=== PATIENT | female | born 1955 | race Caucasian/White ===

== ENCOUNTER 2018-04-24 06:51 | Inpatient (IN) | payer OTHER ==
--- NOTE | 2018-04-14 21:41 | HP ---
HISTORY AND PHYSICAL: DATE OF ADMISSION/SURGERY: 04/24/18 DATE OF OFFICE VISIT: 04/11/18 SURGEON: Amy Tariq MD * (DICTATED BY RICO GE) PROCEDURE: Right total knee arthroplasty. CHIEF COMPLAINT: Right knee pain. HISTORY OF PRESENT ILLNESS: Ms. Tineo is a 62-year-old female with complaints of right knee pain. She has failed conservative treatment and elected to proceed with a right total knee arthroplasty, which is scheduled for 04/24/18. PAST MEDICAL HISTORY: Hypertension, high cholesterol, GERD, reactive airway disease, cutaneous T cell lymphoma, depression, sleep apnea, macular degeneration. PAST SURGICAL HISTORY: Hysterectomy and vertical banded gastroplasty. CURRENT MEDICATIONS: 1. Paroxetine 20 mg daily. 2. Atorvastatin. 3. Calcium 10 mg daily. 4. Ranitidine 300 mg daily. 5. Colace 100 mg as needed. 6. Multivitamin. 7. Tramadol. 8. Albuterol. 9. EpiPen. ALLERGIES: ASPIRIN. FAMILY HISTORY: Diabetes, cancer, coronary artery disease, DVT/PE. SOCIAL HISTORY: She is a 62-year-old female. She lives with her . She does not smoke, use drugs. Uses occasional alcohol. REVIEW OF SYSTEMS: A complete 14-point review of systems was reviewed with the patient. It was positive for GERD. She denies history of DVT, PE, hepatitis, HIV or anesthesia problems. PHYSICAL EXAMINATION GENERAL: She is well developed, well nourished, in no acute distress. VITAL SIGNS: She stands 6 feet 3 inches tall, weighs 215 pounds. Her blood pressure 142/90, her heart rate 68. HEENT: Normocephalic, atraumatic. NECK: Supple. No palpable lymph nodes. PULMONARY: Lungs are clear to auscultation bilaterally. CARDIO: Regular rate and rhythm. Strong S1, S2. ABDOMEN: Soft, nontender, nondistended. NEUROLOGICAL: She is alert and oriented x3. MUSCULOSKELETAL: Right lower extremity, the skin is intact. There are no open wounds or abrasions. She has a moderate joint effusion, some tenderness over the medial and lateral joint line. Range of motion is 5 to 120 degrees of flexion with severe patellofemoral crepitus. She has 2+ dorsalis pedis pulse. Intact sensation in her lower extremity. Muscular group strengths are intact at 5/5. ASSESSMENT AND PLAN: Ms. Tineo is a 62-year-old female with end-stage osteoarthritis of the right knee. She has failed conservative treatment and elected to proceed with a right total knee arthroplasty, which is scheduled for 04/24/[address] aTriq discussed the risks, the benefits of the surgery at today's visit and all of her questions were answered. She will follow with Dr. Tariq 2 weeks after the surgery. RICO GE [id number]/CPS #: [id number] JAN
[~2018-04-24 06:51] MED LIST: Buffered Lidocaine 0.9% SYRIN* 5 ML/SYR SYRINGE INTRADERM ONE; Dexamethasone IV* 4 MG/ML 1 ML (4 MG) IV SLOW PU ONE; Famotidine IV* 10 MG/ML 2 ML (20 mg) IV ONE; Gabapentin CAP(*) 300 MG PO ONE; Levalbuterol 0.63MG/3ML NEB* UNIT OF USE INH PRN; Tranexamic Acid 1,000 MG in NS 0.9% 50 ML* (outpatient use) IV SCH
--- OUTSIDE RECORDS SUMMARY | 2018-04-24 08:40 | XMS REPORT | Continuity of Care Document ---
:1955 External Reference #:[id number] Author Name Michele Thurman MD Address [address] [place] [address] Care Team Providers Name Role Phone Michele Thurman MD Care Team Information Facilities Custodian Unavailable Payers Type Date Identification Numbers Payment Provider Subscriber Effective: Policy Number: [id number] [facility] Lisset Tineo 2017 00 Group Number: [id number] [address] PayID: [id number] [place] [address] Advance Directives Description No Information Available Problems Description No Information Family History Date Family Member(s) Problem(s) Comments General Diabetes General Heart Disease General COPD General CHF General Cancer, Breast Social History Type Date Description Comments Sex Unknown Marital Status Lives With Male Partner Patelbradford Tineo Occupation Nurse Tobacco Use Start: Unknown Never Smoked Cigarettes ETOH Use Currently consumes alcohol 7-8 per week Allergies, Adverse Reactions, Alerts Date Description Reaction Status Severity Comments 08/16/2017 Bee Sting Active 08/16/2017 Aspirin Active Medications Medication Date Status Form Strength Qnty SIG Indications Ordering Provider Epipen 2-Poli Active Solution 0.3mg/0.3M 2units use as Michele 018 Auto-Injec L amanda Gutierrez as needed for severe allergic reaction and call 911 Paxil Active Tablets 20mg 90tabs 1 by mouth Michele 000 every day MD Olman Albuterol HFA Active 90mcg/Inh 2 puffs Unknown 000 every 4 hours as needed Zantac Active Tablets 300mg 60tabs 1 by mouth Michele 000 every day MD Olman Diclofenac Active Tablets DR 75mg 60tabs take 1 Michele Sodium 000 tablet by kelley Thurman MD twice a day Lipitor Active Tablets 10mg 15tabs Take 1/2 Michele 000 Tablet By Kelley Thurman AT MD Bedtime Immunizations CPT Code Status Date Vaccine Lot # [id number] Given 08/16/2017 Pneumovax 23 (PPSV23) 65+ years or high risk 2 to [id number] 65 year old 35470 Given 05/02/2016 Influenza Virus Vaccine, Quadrivalent, 3 Yr > Quad, Preserv Free 17453 Given 04/08/2014 Influenza Virus Vaccine, Quadrivalent, 3 Yr > Quad, Preserv Free 82173 Given 09/25/2012 Tdap (Adacel) 23418 Refused 08/16/2017 Influenza Virus Vaccine, Quadrivalent, 3 Yr > Quad , Preserv Free Vital Signs Date Vital Result Comment 04/10/2018 2:56pm Weight 216.00 lb Weight 97.978 kg BP Systolic 120 mmHg BP Diastolic 84 mmHg Heart Rate 64 /min Body Temperature 97.7 F Respiratory Rate 18 /min O2 % BldC Oximetry 98 % 08/16/2017 12:59pm Weight 207.00 lb Weight 93.895 kg BP Systolic 130 mmHg BP Diastolic 88 mmHg Heart Rate 68 /min Body Temperature 98.1 F Height 62 inches 5'2" BMI (Body Mass Index) 37.9 kg/m2 Results Test Date Facility Test Result H/L Range Note CBC Auto Diff 08/23/[address] [facility] White Blood 3.3 10^3/uL Low 3.5-10.8 [phone] Count Red Blood Count 4.51 10^6/uL 4.0-5.4 Hemoglobin 14.2 g/dL 12.0-16.0 Hematocrit 42 % 35-47 Mean Corpuscular Volume 93 fL 80-97 Mean Corpuscular Hemoglobin 32 pg High 27-31 Mean Corpuscular HGB Conc 34 g/dL 31-36 Red Cell Distribution Width 13 % 10.5-15 Platelet Count 129 10^3/uL Low 150-450 Mean Platelet Volume 11 um3 High 7.4-10.4 Abs Neutrophils 2.0 10^3/uL 1.5-7.7 Abs Lymphocytes 0.9 10^3/uL Low 1.0-4.8 Abs Monocytes 0.3 10^3/uL 0-0.8 Abs Eosinophils 0.1 10^3/uL 0-0.6 Abs Basophils 0 10^3/uL 0-0.2 Abs Nucleated RBC 0 10^3/uL Granulocyte % 60.4 % 38-83 Lymphocyte % 26.4 % 25-47 Monocyte % 8.8 % 1-9 Eosinophil % 3.3 % 0-6 Basophil % 1.1 % 0-2 Nucleated Red Blood Cells % 0.2 Comp Metabolic Panel 08/23/[address] [facility] Sodium 142 mmol/L 133-145 [phone] Potassium 4.0 mmol/L 3.5-5.0 Chloride 107 mmol/L 101-111 Co2 Carbon Dioxide 29 mmol/L 22-32 Anion Gap 6 mmol/L 2-11 Glucose 96 mg/dL 70-100 Blood Urea Nitrogen 10 mg/dL 6-24 Creatinine 0.68 mg/dL 0.51-0.95 BUN/Creatinine Ratio 14.7 8-20 Calcium 9.4 mg/dL 8.6-10.3 Total Protein 6.5 g/dL 6.4-8.9 Albumin 4.4 g/dL 3.2-5.2 Globulin 2.1 g/dL 2-4 Albumin/Globulin Ratio 2.1 1-3 Total Bilirubin 0.70 mg/dL 0.2-1.0 Alkaline Phosphatase 84 U/L 34-104 Alt 22 U/L 7-52 Ast 24 U/L 13-39 Egfr Non- 88.3 >60 Egfr 113.5 >60 1 Laboratory test 08/23/[address] [facility] Hemoglobin A1c 5.2 % 4.0-5.6 2 finding [phone] (Glyco HGB) TSH (Thyroid Stim Horm) 2.13 mcIU/mL 0.34-5.60 3 Lipid Profile 08/23/[address] [facility] Triglycerides 103 mg/dL 4 (Trig/Chol/HDL) [phone] Cholesterol 141 mg/dL 5 HDL Cholesterol 49.7 mg/dL 6 LDL Cholesterol 71 mg/dL 7 Laboratory 08/23/[address] [facility] Hepatitis C Nonreactive Nonreactive 8 test finding [phone] Antibody 1 Because ethnic data is not always readily available, this report includes an eGFR for both -Americans and non- Americans. The National Kidney Disease Education Program (NKDEP) does not endorse the use of the MDRD equation for patients that are not between the ages of 18 and 70, are , have extremes of body size, muscle mass, or nutritional status, or are non- or non-. According to the National Kidney Foundation, irrespective of diagnosis, the stage of the disease is based on the level of kidney function: Stage Description GFR(mL/min/1.73 m(2)) 1 Kidney damage with normal or decreased GFR 90 2 Kidney damage with mild decrease in GFR 60-89 3 Moderate decrease in GFR 30-59 4 Severe decrease in GFR 15-29 5 Kidney failure <15 (or dialysis) 2 Therapeutic target for the treatment of diabetes mellitus patients is <7% HBA1C, and in selective patients <6.0%. Please refer to [place] Diabetes Association diabetic care guidelines for further information. 3 [id number] 4 Desirable: <150 Borderline High: 150-199 High: 200-499 Very High: >500 5 Desirable: <200 Borderline High: 200-239 High: >239 6 Low: <40 Desirable: 40-60 High: >60 7 Desirable: <100 Near Optimal: 100-129 Borderline High: 130-159 High: 160-189 Very High: >189 8 [id number] Procedures Description No Information Available Encounters Type Date Location Provider Dx Diagnosis Office Visit 08/16/2017 Main Office Monae Ordonez00.8 Encounter for other 1:00p general examination Z23 Encounter for immunization Plan of Treatment 04/10/2018 - Michele Thurman MDZ01.818 Encounter for other preprocedural examinationComments:The patient is estimated to be LOW risk for an INTERMEDIATE risk surgery. There are no medications that need to be adjusted prior to surgery , except that she will stop diclofenac prior to surgery.No chronic medical issues need to be optimized prior to the operation. There were no factors identified todelay an elective procedure. We would recommend proceeding with the planned procedure with the usuallevel of care.Recommendations:Stop diclofenac a week before mbbgujjN54.11 Unilateral primary osteoarthritis, right knee
--- OUTSIDE RECORDS SUMMARY | 2018-04-24 08:40 | XMS REPORT ---
:1955 External Reference #:[id number] Author Organization [employer] Address [address] [place] [address] [place] [address] Phone [phone] Care Team Providers Name Role Phone Michele Thurman MD Primary Care Physician Unavailable Payers Type Date Identification Numbers Payment Provider Subscriber Commercial Effective: Policy Number: [facility] Lisset Tineo 2017 [id number] (Medicare) PayID: [id number] [place] [address] [address] [place] [address] [employer] [place] Part B Effective: Policy Number: Rosibel RUBY Tineo 2010 [id number] Expires: 2017 PayID: [id number] [address] [address] [place] [address] [employer] Part B Expires: 2017 Policy Number: [facility] Health Plan Lisset Tineo [id number] o PayID: [id number] Attn o Claims Dept [address] [place] [address] Problems Date Description Provider Status Onset: 12/30/2017 Trochanteric bursitis Amy Tariq M.D. Active Onset: 12/30/2017 Localized, primary osteoarthritis of the Amy Tariq M.D. Active pelvic region and thigh Onset: 12/30/2017 Localized, primary osteoarthritis Amy Tariq M.D. Active Family History Date Family Member(s) Problem(s) Comments General Cancer MGM Father Diabetes Father Heart Disease Mother Diabetes Mother Hypertension First Brother Diabetes First Brother Heart Disease Social History Type Date Description Comments Lives With Spouse Occupation Retired ETOH Use Drinks 6 Alcoholic Beverages Per Week Smoking Patient has never smoked Exercise Type/Frequency Walks sporadically Allergies, Adverse Reactions, Alerts Date Description Reaction Status Severity Comments 12/30/2017 Aspirin swelling active Medications Medication Date Status Form Strength Qnty SIG Indications Ordering Provider Voltaren 03/10/ Active Gel 1% 100gm apply 2 Amy 2017 grams to Marciano, affected M.D. area 2-3 times daily for pain Tramadol HCL 02/05/ Active Tablets 50mg 45tabs 1 tab Amy 2017 twice a Marciano, day as M.D. needed for pain Paroxetine HCL / Active Tablets 20mg Heetderks, 0000 Michele Machado MD Atorvastatin / Active Tablets 10mg Elijahetderks, Calcium 0000 Michele Machado MD Diclofenac / Active Tablets DR 75mg 60tabs one tab Amy Sodium 0000 twice a Marciano, day with M.D. food as needed Ranitidine HCL / Active Tablets 300mg Take 1 Unknown 0000 Tablet By Mouth Once Daily AT Bedtime Colace / Active Capsules 100mg 1 tab by Unknown 0000 mouth 2-3 times a day as needed Multi For Her / Active Capsules once a day Unknown 0000 otc Medications Administered in Office Medication Date Status Form Strength Qnty SIG Indications Ordering Provider Depomedrol Administered Injection Amy 40MG 018 Kaitlin Tariq Vital Signs Date Vital Result Comment 04/11/2018 Height 63 inches 5'3" Weight 216.25 lb Heart Rate 68 /min BP Systolic 142 mmHg BP Diastolic 90 mmHg Respiratory Rate 16 /min Body Temperature 98.3 F Pain Level 3 BMI (Body Mass Index) 38.3 kg/m2 12/30/2017 Height 62.5 inches 5'2.50" Weight 197.00 lb BP Systolic Sitting 132 mmHg BP Diastolic Sitting 92 mmHg Respiratory Rate 16 /min Body Temperature 98.0 F Pain Level 4 BMI (Body Mass Index) 35.5 kg/m2 04/20/2011 Height 63 inches 5'3" Weight 190.00 lb Heart Rate 63 /min BP Systolic 132 mmHg BP Diastolic 97 mmHg BMI (Body Mass Index) 33.7 kg/m2 Results Description No Information Procedures Date CPT Code Description Status 12/30/2017 03114 Injection Single Tendon Origin/Insertion Completed Encounters Type Date Location Provider CPT E/M Dx Office Visit 12/30/2017 [facility] Amy Tariq M.D. 56476 M25.561 1:30p [facility] M25.461 M17.11 M25.551 M16.11 M70.61 Office Visit 04/30/2011 4:00p [facility] M.D. 93334 726.64 [facility] Office Visit 04/20/2011 11:00a [facility] M.D. 37469 836.1 [facility] Plan of Care Future Appointment(s):05/07/2018 11:15 am - Amy Tariq M.D. at [facility]04/24/2018 11:30 am - Jules Bryan PA-C at [facility]04/24/2018 11:30 am - RICO Skaggs at [facility]04/24/2018 11:30 am - Amy Tariq M.D. at [facility]04/11/2018 - Amy Tariq M.D.M25.561 Pain in right kneeFollow up:Follow up: 2 weeks after gaxfuxwK59.461 Effusion, right kneeM17.11 Unilateral primary osteoarthritis, right knee
--- OUTSIDE RECORDS SUMMARY | 2018-04-24 08:40 | XMS REPORT | Continuity of Care Document ---
:1955 External Reference #:[id number] Author Name Krishna Mays M.D. Address [address] [place] [address] Care Team Providers Name Role Phone Michele Thurman M.D. Primary Care Physician Unavailable Payers Type Date Identification Numbers Payment Provider Subscriber Policy Number: [id number] [facility] Lisset Tineo PayID: [id number] [address] [place] [address] Advance Directives Description No Information Available Problems Date Description Provider Status Onset: Reactive airway disease Active Onset: Gastroesophageal reflux disease Active Onset: Arthritis Active Onset: Essential hypertension Active Onset: Hypercholesterolemia Active Onset: Depressive disorder Active Onset: 12/30/2014 Nuclear senile cataract Chloe Fowler O.D. Active Onset: 04/10/2018 Bilateral age-related nonexudative Krishna Mays M.D. Active macular degeneration Onset: 04/10/2018 Epiretinal membrane Krishna Mays M.D. Active Family History Date Family Member(s) Problem(s) Comments Father No Current Problems Mother Cataract Social History Type Date Description Comments Sex Unknown Marital Status Legal Status: Occupation Nurse Retired and Spr[employer] Work Status Retired ETOH Use Consumes 1 glass of wine per day Tobacco Use Start: Unknown Patient has never smoked Recreational Drug Use Denies Drug Use Smoking Status Reviewed: 04/10/18 Patient has never smoked Allergies, Adverse Reactions, Alerts Date Description Reaction Status Severity Comments 12/30/2014 Aspirin bleed Active 12/30/2014 Ecotrin Allergic asthma, Urticaria Active 12/30/2014 Bee Stings Active Medications Medication Date Status Form Strength Qnty SIG Indications Ordering Provider Diclofenac 04/09/ Active Tablets DR 75mg as Unknown Sodium 2017 needed Atorvastatin / Active Tablets 10mg Unknown Calcium 0000 Paroxetine HCL / Active Tablets 20mg Unknown 0000 Multivitamins / Active Capsules Unknown 0000 Epipen 2-Poli / Active Solution 0.3mg/0.3M Unknown 0000 Auto-Inject L Albuterol / Active Nebulizer (2.5mg/3ML Unknown Sulfate 0000 ) 0.083% Ranitidine HCL / Active Tablets 300mg Unknown 0000 Immunizations Description No Information Available Vital Signs Description No Information Available Results Description No Information Available Procedures Date Code Description Status 12/30/2014 86001 Determination Of Refractive State Completed 12/30/2014 27427 New Patient Comprehensive Exam Completed Encounters Description No Information Available Plan of Treatment 04/10/2018 - Krishna Mays M.D.H35.373 Puckering of macula, bilateralComments:Smoking can increase the risk of developing or worsening any eye related disease, as well as affect your overall health. If you are a smoker , we strongly recommend that you quit.If you are not a smoker, we strongly recommend that you do not start. A Macular Pucker is a wrinkling of the retina tissue. It can cause distortion in your vision. Please call the office if you notice a decrease or new distortion in your vision before then. I WILL REFER YOU TO A RETINA SPECIALIST TO EVALUATE THIS RETINALMEMBRANE FOR IF A SURGERY IS HOBJFYHLYD30.13 Age-related nuclear cataract, bilateralComments:You have been diagnosed with cataracts. If you are happy with your vision as it is now, then we willsee you at your next scheduled appointment. If you feel like your vision is getting worse before your scheduled appointment, please call Lashawn Cuevas at [phone].H35.1031 Nonexudative age-related macular degeneration, bilateral, early dry stageComments:You have Macular Degeneration. Check your Amsler Grid, with each eye separately, and take the AREDS II formula vitamins. If you notice any changes in your vision, please call the office and schedule anappointment to see any of the doctors here.
[2018-04-24] MEDS ORDERED: Famotidine IV* 10 MG/ML 2 ML (20 mg) ONE (08:46)
[2018-04-24] MEDS ORDERED: Buffered Lidocaine 0.9% SYRIN* 5 ML/SYR SYRINGE ONE (08:46)
[2018-04-24] MEDS ORDERED: Dexamethasone IV* 4 MG/ML 1 ML (4 MG) ONE (08:46)
[2018-04-24] MEDS ORDERED: ceFAZolin 2 GM PREMIX in ORs 2 GM/50 ML BAG IVPB ONE (09:41)
[2018-04-24] MEDS ORDERED: Levalbuterol 0.63MG/3ML NEB* UNIT OF USE INH PRN (09:51)
[2018-04-24] MEDS ORDERED: DiMENhydriNATE IV* 50 MG/ML VIAL IV PUSH PRN (09:51)
[2018-04-24] MEDS ORDERED: HYDROcodone/ACETAMIN 5-325 MG* 1 TAB PO PRN (09:51)
[2018-04-24] MEDS ORDERED: oxyCODONE/Acetamin 5/325 MG* TAB PO PRN (09:51)
[2018-04-24] MEDS ORDERED: Naloxone* 0.4 MG/ML 1 ML VIAL IV PRN (09:51)
[2018-04-24] MEDS ORDERED: Midazolam* 1 MG/ML 5 ML VIAL (5 MG) ONE (09:56)
[2018-04-24] MEDS ORDERED: fentaNYL* 50 MCG/ML 2 ML VIAL (100 MCG VIAL) ONE ×6 (09:56→14:59)
[2018-04-24] MEDS ORDERED: Gabapentin CAP(*) 300 MG ONE (09:57)
[2018-04-24] MEDS ORDERED: Levalbuterol 0.63MG/3ML NEB* UNIT OF USE INH ONE (09:57)
[2018-04-24] MEDS ORDERED: celeCOXIB CAP* 100 MG ONE (10:19)
[2018-04-24] MEDS ORDERED: ROPIVACAINE 5 MG/ML 30 ML BTL (0.5%) ONE (10:21)
[2018-04-24] MEDS: celeCOXIB CAP* 200 MG PO SCH ×2 (10:22→20:09)
[2018-04-24] MEDS ORDERED: Bupivacaine 0.5% SDV PF* 30ML VIAL ONE (11:03)
[2018-04-24] MEDS ORDERED: Propofol* 10 MG/ML 20 ML BTL IV PUSH ONE (11:09)
[2018-04-24] MEDS ORDERED: Lidocaine 2% PF * 5 ML VIAL ONE (11:09)
[2018-04-24] MEDS ORDERED: EPHEDrine (Pressors)* 50 MG/ML VIAL ONE (11:31)
[2018-04-24] MEDS ORDERED: KETAMINE HCL* 50 MG/ML 10 ML VIAL ONE (11:53)
[2018-04-24] MEDS ORDERED: hydrALAZINE IV* 20 MG/ML VIAL ONE (12:06)
[2018-04-24] MEDS ORDERED: Ondansetron INJ* 2 MG/ML VIAL ONE (12:56)
[2018-04-24] MEDS ORDERED: Phenylephrine INJ* 10 MG/ML 1 ML VIAL (10 MG) ONE (12:56)
[2018-04-24] MEDS ORDERED: Bisacodyl SUPP* 10 MG SUPP PR PRN (13:48)
[2018-04-24] MEDS ORDERED: Ondansetron INJ* 2 MG/ML VIAL IV PRN (13:48)
[2018-04-24] MEDS ORDERED: Morphine VIAL* 4 MG/ML VIAL (1 ml vial) IV PRN (13:48)
[2018-04-24] MEDS ORDERED: Acetaminophen TAB* 325 MG PO PRN (13:48)
[2018-04-24] MEDS ORDERED: diPHENhydraMINE IV* 50 MG/ML 1 ml VIAL (BENADRYL) IV PRN (13:48)
[2018-04-24] MEDS ORDERED: Magnesium Hydroxide LIQ* 30 ML UDC PO PRN (13:48)
[2018-04-24] MEDS: fentaNYL* 50 MCG/ML 2 ML VIAL (100 MCG VIAL) IV PRN ×5 (13:55→15:17)
--- NOTE | 2018-04-24 14:56 | RAD ---
HISTORY: S/P RTKA COMPARISONS: December 30, 2017 VIEWS: 2 , Frontal and lateral views of the right knee FINDINGS: BONE DENSITY: Normal. BONES: The patient is status post right knee arthroplasty. There is no hardware failure or osteolysis. JOINTS: The patient is status post right knee arthroplasty. ALIGNMENT: There is no dislocation. SOFT TISSUES: Unremarkable. OTHER FINDINGS: None. IMPRESSION: STATUS POST RIGHT KNEE ARTHROPLASTY
[2018-04-24] MEDS ORDERED: oxyCODONE/Acetamin 5/325 MG* TAB ONE (15:15)
--- NOTE | 2018-04-24 15:33 | PN ---
Progress Note - Progress Note Date of Service: 04/24/18 Note: patient resting in recovery room. Pain controlled well with medications. Denies SOB/calf pain. incision c/d; able to dorsi flex/plantar flex, 2+ DP pulse and intact sensation
[2018-04-24] MEDS ORDERED: HYDROcodone/ACETAMIN 5-325 MG* 1 TAB ONE (15:41)
[2018-04-24] MEDS ORDERED: Warfarin TAB(*) 6 MG PO ONE (17:00)
[2018-04-24] MEDS: oxyCODONE TAB* 5 MG TAB PO PRN (17:23)
[2018-04-24] MEDS ORDERED: Albuterol 2.5 MG/3 ML NEB.SOL* (0.083%) INH PRN (18:29)
[2018-04-24] MEDS: Docusate CAP* 100 MG PO SCH (20:08)
[2018-04-24] MEDS: Magnesium Hydroxide LIQ* 30 ML UDC PO SCH (20:09)
[2018-04-24] MEDS: oxyCODONE/Acetamin 5/325 MG* TAB PO PRN (20:09)
[2018-04-24] MEDS: ceFAZolin 1 GM in Dextrose (*) 1 GM/50 ML BAG IVPB SCH (20:09)
[2018-04-24] MEDS: Cyclobenzaprine TAB* 10 MG PO PRN (21:22)
--- NOTE | 2018-04-24 22:19 | CONS ---
CC: Dr. Racheal Parra; Dr. Amy Tariq* CONSULTATION REPORT: DATE OF CONSULT: 04/24/18. MY ATTENDING WHILE IN THE HOSPITAL: Dr. Racheal Parra. CONSULTING PROVIDER: Dr. Amy Tariq. REASON FOR CONSULTATION: Comanagement of comorbid medical conditions. HISTORY OF PRESENT ILLNESS: Mrs. Tineo is a 62-year-old female with a past medical history significant for reactive airway disease, cutaneous T-cell lymphoma, sleep apnea, and borderline hypertension, who failed outpatient treatment for right knee pain and is status post right total knee arthroplasty. The patient is doing well after the surgery. The patient rates her pain as a 5/10, which is improved with medication and not unbearable. The patient denies chest pain, shortness of breath, dizziness, palpitations or abdominal pain. The patient had no recent illnesses. No sick contacts. No abdominal pain, diarrhea or dysuria, passing out, PND, decrease in exercise tolerance or dyspnea on exertion. The patient uses her inhaler approximately about once a day. She stopped her Voltaren 1 week ago as prescribed. The patient uses her tramadol twice a day, but stopped last night. The patient is taking all of her other medications as prescribed. PAST MEDICAL HISTORY: Borderline hypertension, not on medication. High cholesterol, GERD, reactive airway disease, cutaneous T-cell lymphoma, currently in remission. Depression, sleep apnea, macular degeneration. PAST SURGICAL HISTORY: Hysterectomy and vertical-banded gastroplasty. MEDICATIONS: 1. Paroxetine 20 mg p.o. daily. 2. Atorvastatin 5 mg p.o. daily. 3. Calcium 10 mg p.o. daily. 4. Ranitidine 300 mg p.o. daily. 5. Colace 100 mg p.o. daily. 6. Multivitamin. 7. Tramadol b.i.d. as needed. 8. Albuterol q.4 hours nebulizer as needed. 9. EpiPen 3 mcg as needed. 10. Voltaren 75 mg b.i.d. as needed. ALLERGIES: ASPIRIN. FAMILY HISTORY: The patient's father of CHF, complicating AR. The patient 's mother of Alzheimer's disease and had a history of a blood clot. The patient's maternal grandfather had lymphoma. The patient's brother recently with the complications of CHF. SOCIAL HISTORY: The patient does not smoke or use drugs. The patient drinks 1 beer approximately 3 to 5 times a week. The patient is an RN at [employer]. The patient's surrogate decision maker will be her , Patel Tineo. REVIEW OF SYSTEMS: A 14-point review of systems was reviewed and is negative as above in the HPI. PHYSICAL EXAM: General: The patient is a 62-year-old female, who appears her stated age and sitting comfortably in bed, in no acute distress. HEENT: Normocephalic, atraumatic, sclerae anicteric. No conjunctival injection. Nasal mucosa moist. Oral mucosa moist. No pharyngeal erythema, discharge or exudate. Vital Signs: Temperature 98.5, pulse rate 91, respiratory rate 16, oxygen saturation is 97% on room air, blood pressure 128/74. Neck: Supple. Nontender. No lymphadenopathy. No carotid bruit auscultated. No JVD. Cardiac : Regular rate and rhythm. No clicks, murmurs, gallops or rubs. Pulses 2+ in bilateral dorsalis pedis, posterior tibialis, and radial areas. No bilateral lower extremity edema noted. Respiratory: Clear to auscultation bilaterally. No wheezes, rales or rhonchi. Good air exchange bilaterally. Abdomen: Bowel sounds present. Hypoactive in all 4 quadrants. No hepatosplenomegaly. No abdominal bruits auscultated. No hepatojugular reflux. Skin: Clean, dry, and intact except for right knee incision covered in bulky dressing. Neuro: Cranial nerves II through XII intact. No focal deficits. Alert and oriented x3. No numbness or tingling in the bilateral lower extremity. Psychiatric: Pleasant and cooperative. DIAGNOSTIC STUDIES/LAB DATA: Preoperatively, white blood cell count 4.9, hemoglobin 13.7, platelet count 146, INR 0.9, aPTT 35.2. Sodium 144, potassium 4.2, chloride 107, carbon dioxide 30, anion gap 7, BUN 16, glucose 76, calcium 9.1, bilirubin 0.5, AST 20, ALT 16, alkaline phosphatase 96, albumin 4.4, globulin 2.3, lipase 24. ASSESSMENT, PLAN, AND IMPRESSION: Mrs. Tineo is a 62-year-old female with a past medical history significant for hypertension, high cholesterol, reactive airway disease, and cutaneous T-cell lymphoma as well as sleep apnea, who is status post right total knee arthroplasty and is doing well without complications. 1. Postoperative state, management per primary team. The patient's pain is moderately well controlled. The patient should have her Lazar catheter removed per protocol. Will be continued on bowel regimen, to have physical therapy and occupational therapy, to have her H and H trended. 2. Hypertension. The patient's hypertension is borderline and is not an issue for her, she is currently normotensive. The patient will have fluids for blood pressure support in the postoperative period, which we can discontinue per protocol when she is drinking fluids. The patient will have blood pressure treated as needed while in the hospital. 3. High cholesterol. Continue atorvastatin. 4. Reactive airway disease. Continue albuterol as needed. 5. Depression. Continue paroxetine. 6. Sleep apnea. The patient brought in her home CPAP, which she should use while in the hospital. 7. DVT prophylaxis: Lovenox to warfarin as per primary team. 8. Fluids, electrolytes, and nutrition: The patient will have a regular unrestricted diet and fluids as per primary team. 9. Code status: The patient will be a full code. The patient's surrogate decision maker will be her , Patel Tineo as above. 10. Disposition: The patient will be admitted as an inpatient. TIME SPENT: Approximately, 60 minutes was spent on this consultation, 30 of which was spent [id number] with the patient obtaining history and physical and discussing treatment plan. Plan was discussed with my attending, Dr. Racheal Parra, and she is in agreement. RICO RAMSEY [id number]/[facility] #: [id number] [email or web address]
[2018-04-25] MEDS: oxyCODONE/Acetamin 5/325 MG* TAB PO PRN ×2 (03:36→11:20)
[2018-04-25] MEDS: ceFAZolin 1 GM in Dextrose (*) 1 GM/50 ML BAG IVPB SCH ×2 (03:38→12:33)
[2018-04-25] MEDS: oxyCODONE TAB* 5 MG TAB PO PRN (06:34)
[2018-04-25 07:19] LABS: Hematocrit 33 % (35-47); Hemoglobin 11.2 g/dl (12.0-16.0); Mean Platelet Volume 9.3 um3 (7.4-10.4); Platelet Count 145 10^3/ul (150-450)
[2018-04-25 07:38] LABS: INR 1.1 (0.77-1.02)
[2018-04-25] MEDS: Cyclobenzaprine TAB* 10 MG PO PRN (07:51)
[2018-04-25] MEDS ORDERED: Vitamin THERAPEUTIC TAB PO SCH (09:00)
[2018-04-25] MEDS ORDERED: PARoxetine HCL TAB* 20 MG PO SCH (09:00)
[2018-04-25] MEDS ORDERED: Famotidine TAB* 20 MG PO SCH (09:00)
--- NOTE | 2018-04-25 09:13 | PN ---
Progress Note - Progress Note Date of Service: 04/25/18 SOAP: Subjective: 62 y/o R TKA by Dr. Tariq 04/24/2018. Patient reports doing well, eager for D/ C home today. Pain moderately controlled with PO pain medication. Denies SOb chest pain. VSS, afebrile overnight. Objective: General- Well appearing, NAD, AO resting in chair comfortably. MSK- RLE- DF/PF = b/l, PT 2+, negative homans sign, surgical dressing intact, no drainage noted, thigh non-tender, no induration. SITLT. Vital Signs Temp 98.0 F 04/25/18 03:21 Pulse 73 04/25/18 03:21 Resp 18 04/25/18 07:51 BP 100/47 04/25/18 03:21 Pulse Ox 97 04/25/18 03:21 Intake & Output 04/24/18 04/25/18 04/25/18 18:59 06:59 18:59 Intake Total 2120 2558 310 Output Total 1625 300 Balance 2120 933 10 Weight 96.615 kg Intake: IV Fluids 1700 1098 ABX - CEFAZOLIN 108 LR 1700 990 Oral 420 1460 310 Output: Urine 300 Lazar 1625 Other: # Bowel Movements 0 Assessment: Stable 62 y/o R TKA by Dr. Tariq 04/24/2018. Plan: - DVT prophylaxis- lovenox, coumadin - Continue PT/ OT - Follow up with Dr. Tariq within 10-14 days - H&H - stable - post-op IV ABX - running - D/C to home today if completes and cleared by PT - Continue current pain regimen Acetaminophen (Tylenol Tab*) 650 mg PO Q8H PRN PRN Reason: PAIN OR TEMPERATURE Albuterol (Ventolin 2.5 Mg/3 Ml Neb.Jeanne*) 2.5 mg INH Q4H PRN PRN Reason: SOB/WHEEZING Atorvastatin Calcium (Lipitor*) 10 mg PO EVERY OTHER DAY PITA Bisacodyl (Dulcolax Supp*) 10 mg OH DAILY PRN PRN Reason: constipation Celecoxib (Celebrex Cap*) 200 mg PO BID PITA Stop: 04/25/18 10:59 Last Admin: 04/24/18 20:09 Dose: 200 mg Cyclobenzaprine HCl (Flexeril Tab*) 5 mg PO TID PRN PRN Reason: SPASMS Last Admin: 04/25/18 07:51 Dose: 5 mg Diphenhydramine HCl (Benadryl Iv*) 25 mg IV Q6H PRN PRN Reason: itching Docusate Sodium (Colace Cap*) 100 mg PO BID [facility] Last Admin: 04/24/18 20:08 Dose: 100 mg Enoxaparin Sodium (Lovenox(*)) 40 mg SUBCUT Q24H [facility] Famotidine (Pepcid Tab*) 40 mg PO QAM [facility] Cefazolin Sodium/Dextrose (Kefzol 1 Gm In Dextrose Duplex (*)) 1 gm in 50 mls @ 200 mls/hr IVPB Q8H [facility] Stop: 04/25/18 12:14 Last Admin: 04/25/18 03:38 Dose: 200 mls/hr Lactated Ringer's (Lactated Ringers 1000 Ml Bag*) 1,000 mls @ 75 mls/hr IV PER RATE [facility] Last Admin: 04/24/18 15:56 Dose: 75 mls/hr Lactulose (Lactulose*) 30 ml PO Q6H PRN PRN Reason: constipation Magnesium Hydroxide (Milk Of Magnesia Liq*) 30 ml PO BID [facility] Last Admin: 04/24/18 20:09 Dose: 30 ml Magnesium Hydroxide (Milk Of Magnesia Liq*) 30 ml PO Q6H PRN PRN Reason: constipation Morphine Sulfate (Morphine Vial*) 2 mg IV Q2H PRN PRN Reason: PAIN - SEVERE Multivitamins (Theragran Tab*) 1 tab PO DAILY [facility] Ondansetron HCl (Zofran Inj*) 4 mg IV Q6H PRN PRN Reason: nausea Oxycodone HCl (Roxycodone Tab*) 10 mg PO Q4H PRN PRN Reason: PAIN - SEVERE Last Admin: 04/25/18 06:34 Dose: 10 mg Oxycodone/Acetaminophen (Percocet 5/325 Tab*) 2 tab PO Q4H PRN PRN Reason: PAIN Last Admin: 04/25/18 03:36 Dose: 2 tab Paroxetine HCl (Paxil Tab*) 20 mg PO QAM [facility]
[2018-04-25] MEDS: Docusate CAP* 100 MG PO SCH (09:49)
[2018-04-25] MEDS: celeCOXIB CAP* 200 MG PO SCH (09:51)
[2018-04-25] MEDS: Magnesium Hydroxide LIQ* 30 ML UDC PO SCH (09:51)
--- NOTE | 2018-04-25 10:47 | PN ---
Subjective Date of Service: 04/25/18 Interval History: Patient is resting comfortably in chair, POD 1. Reports knee pain at 2/10 with medication. Denies any other pain including chest pain, shortness of breath, abdominal pain, N/V, dizziness, numbness or tingling. Objective Active Medications: Acetaminophen (Tylenol Tab*) 650 mg PO Q8H PRN PRN Reason: PAIN OR TEMPERATURE Albuterol (Ventolin 2.5 Mg/3 Ml Neb.Jeanne*) 2.5 mg INH Q4H PRN PRN Reason: SOB/WHEEZING Atorvastatin Calcium (Lipitor*) 10 mg PO EVERY OTHER DAY PITA Bisacodyl (Dulcolax Supp*) 10 mg VT DAILY PRN PRN Reason: constipation Celecoxib (Celebrex Cap*) 200 mg PO BID [facility] Stop: 04/25/18 10:59 Last Admin: 04/25/18 09:51 Dose: 200 mg Cyclobenzaprine HCl (Flexeril Tab*) 5 mg PO TID PRN PRN Reason: SPASMS Last Admin: 04/25/18 07:51 Dose: 5 mg Diphenhydramine HCl (Benadryl Iv*) 25 mg IV Q6H PRN PRN Reason: itching Docusate Sodium (Colace Cap*) 100 mg PO BID [facility] Last Admin: 04/25/18 09:49 Dose: 100 mg Enoxaparin Sodium (Lovenox(*)) 40 mg SUBCUT Q24H [facility] Famotidine (Pepcid Tab*) 40 mg PO QAM [facility] Last Admin: 04/25/18 09:48 Dose: 40 mg Cefazolin Sodium/Dextrose (Kefzol 1 Gm In Dextrose Duplex (*)) 1 gm in 50 mls @ 200 mls/hr IVPB Q8H [facility] Stop: 04/25/18 12:14 Last Admin: 04/25/18 03:38 Dose: 200 mls/hr Lactated Ringer's (Lactated Ringers 1000 Ml Bag*) 1,000 mls @ 75 mls/hr IV PER RATE [facility] Last Admin: 04/24/18 15:56 Dose: 75 mls/hr Lactulose (Lactulose*) 30 ml PO Q6H PRN PRN Reason: constipation Magnesium Hydroxide (Milk Of Magnesia Liq*) 30 ml PO BID [facility] Last Admin: 04/25/18 09:51 Dose: 30 ml Magnesium Hydroxide (Milk Of Magnesia Liq*) 30 ml PO Q6H PRN PRN Reason: constipation Morphine Sulfate (Morphine Vial*) 2 mg IV Q2H PRN PRN Reason: PAIN - SEVERE Last Admin: 04/25/18 09:58 Dose: 2 mg Multivitamins (Theragran Tab*) 1 tab PO DAILY [facility] Last Admin: 04/25/18 09:51 Dose: 1 tab Ondansetron HCl (Zofran Inj*) 4 mg IV Q6H PRN PRN Reason: nausea Oxycodone HCl (Roxycodone Tab*) 10 mg PO Q4H PRN PRN Reason: PAIN - SEVERE Last Admin: 04/25/18 06:34 Dose: 10 mg Oxycodone/Acetaminophen (Percocet 5/325 Tab*) 2 tab PO Q4H PRN PRN Reason: PAIN Last Admin: 04/25/18 03:36 Dose: 2 tab Paroxetine HCl (Paxil Tab*) 20 mg PO QAM [facility] Last Admin: 04/25/18 09:52 Dose: 20 mg Vital Signs - 8 hr 04/25/18 04/25/18 04/25/18 03:21 03:35 03:36 Temperature 98.0 F Pulse Rate 73 Respiratory 16 18 18 Rate Blood Pressure 100/47 (mmHg) O2 Sat by Pulse 97 Oximetry 04/25/18 04/25/18 04/25/18 05:56 06:34 07:51 Temperature Pulse Rate Respiratory 16 16 18 Rate Blood Pressure (mmHg) O2 Sat by Pulse Oximetry 04/25/18 09:58 Temperature Pulse Rate Respiratory 18 Rate Blood Pressure (mmHg) O2 Sat by Pulse Oximetry Oxygen Devices in Use Now: None, CPAP Eyes: No Scleral Icterus, PERRLA Ears/Nose/Mouth/Throat: NL Teeth, Lips, Gums, Mucous Membranes Moist Neck: NL Appearance and Movements; NL JVP, Trachea Midline Respiratory: Symmetrical Chest Expansion and Respiratory Effort, Clear to Auscultation Cardiovascular: NL Sounds; No Murmurs; No JVD, RRR, No Edema Abdominal: NL Sounds; No Tenderness; No Distention Extremities: No Edema, No Clubbing, Cyanosis, - - 2+ DP and PT pulses bilaterally. Flexion/dorsiflexion intact Skin: - - Dressing on R knee CDI Neurological: Alert and Oriented x 3, NL Muscle Strength and Tone Lines/Tubes/Other Access: Clean, Dry and Intact Peripheral IV Result Diagrams: 04/25/18 07:05 04/25/18 07:05 Assess/Plan/Problems-Billing Assessment: Pt is a pleasant 62 year old female with a PMH significant for restrictive airway disease admitted for right knee total knee arthroplasty with Dr Tariq. POD 1 and resting comfortably. - Patient Problems (1) Status post total right knee replacement Current Visit: Yes Status: Acute Code(s): Z96.651 - PRESENCE OF RIGHT ARTIFICIAL KNEE JOINT SNOMED Code(s): 9555906512728 Comment: - Plan per primary team - Pain well controlled on current pain regimen - Continue bowel regimen - PT/OT following - H/H stable (2) Restrictive airway disease Current Visit: Yes Status: Acute Code(s): J98.4 - OTHER DISORDERS OF LUNG SNOMED Code(s): 89276310 Comment: - Lungs clear to ausculation with normal WOB - Continue albuterol PRN - Pt has been using incentive spirometry (3) Sleep apnea Current Visit: Yes Status: Acute Code(s): G47.30 - SLEEP APNEA, UNSPECIFIED SNOMED Code(s): 63479829 Comment: - Pt uses CPAP at home and has brought with her to use in hospital (4) Obesity (BMI 30-39.9) Current Visit: Yes Status: Acute Code(s): E66.9 - OBESITY, UNSPECIFIED SNOMED Code(s): 949043087 Comment: - BMI 37.7 (5) DVT prophylaxis Current Visit: Yes Status: Acute Code(s): SDY6605 - SNOMED Code(s): 686127299 Comment: - Coumadin with lovenox bridge (6) Full code status Current Visit: Yes Status: Acute Code(s): Z78.9 - OTHER SPECIFIED HEALTH STATUS SNOMED Code(s): 673751493 Status and Disposition: Plan per primary team Attending: Neftaly Arceo
--- NOTE | 2018-04-25 11:51 | OP ---
OPERATIVE NOTE: DATE OF OPERATION: 04/24/18 - Inpatient, room [facility]- DATE OF : 57 SURGEON: Amy Tariq MD. CAT TENDER: RICO Quiroz Mr. Bryan did help throughout the procedure with preparation of the leg, wound retraction, manipulation of the knee, and wound closure. ANESTHESIOLOGIST: Dr. Nair. ANESTHESIA: Spinal. PRE-OP DIAGNOSIS: Severe end-stage degenerative osteoarthritis of the right knee joint. POST-OP DIAGNOSIS: Severe end-stage degenerative osteoarthritis of the right knee joint. OPERATIVE PROCEDURE: Right total knee arthroplasty. TOURNIQUET TIME: 41 minutes. COMPLICATIONS: None. ESTIMATED BLOOD LOSS: 250 cc. HARDWARE USED: This is cemented Oter[employer] Nephew total knee arthroplasty hardware. Two packages of Simplex bone cement. For the femur, a size 5 narrow right Oxinium posterior stabilized Legion femoral component. For the tibia, size 3, Vandana II tibial blase plate. For the insert, an 11-mm posterior stabilized articular insert, size 3-4 and for the patella, a 29-mm 3 peg all poly patella. BRIEF HISTORY/INDICATIONS: Ms. Tineo is a 62-year-old female with years of increasingly severe right knee pain. She failed conservative treatment with anti- inflammatories, pain medication, intra-articular injections, and physical therapy. Due to continued pain and decreased quality of life, she elected to undergo right total knee arthroplasty. Radiographs confirmed [id number] arthritis. Informed consent was obtained from the patient. She understood the risks of surgery included, but were not limited to, bleeding, infection, damage to nearby structures, continued pain, need for further surgery, intraoperative fracture, nerve palsy, hardware failure or loosening, knee stiffness, loss of motion, stroke, heart attack, blood clot, and . She wished to proceed. INTRAOPERATIVE FINDINGS: Intraoperatively, the patient was noted to have severe end-stage arthritis. This was tricompartmental full thickness loss of cartilage. DESCRIPTION OF PROCEDURE: Ms. Tineo was identified in the preanesthesia unit. Her right lower extremity was marked as the correct operative side. Informed consent was signed and placed in the chart. The patient was taken to the operating room and placed under spinal anesthesia. A Lazar catheter was placed. Tourniquet was placed on the right thigh. Right lower extremity was prepped and draped in the usual sterile fashion. Preop time-out was made to correctly identify the patient, side and site. Appropriate perioperative antibiotics were given within 1 hour of incision. Tourniquet was inflated and a midline incision was made with a 10 blade. A new 10 blade was used to make a standard medial parapatellar arthrotomy. The patella was subluxed laterally. Electrocautery was used to elevate soft tissue off the superomedial tibia to the mid sagittal plane. The knee was flexed up. The anterior horn of the lateral meniscus and ACL were sharply released. A drill was used to enter the distal femur. Intramedullary distal femoral cutting guide was pinned on the distal femur. Oscillating saw was used to make the distal femoral cut. External rotation guide was pinned on the distal femur. Distal femur was sized to a size 5. A size 5 multi-cutting jig was pinned on the distal femur. Oscillating saw was used to make the appropriate 4 chamfer cuts. The PCL was completely released. The tibia was subluxed anteriorly. Extramedullary tibial cutting guide was pinned on the proximal tibia. Oscillating saw was used to make the proximal tibial cut perpendicular to the mechanical axis of the tibia. The bone was carefully removed. The knee was brought out into full extension. The spacer block had good fit with the knee in full extension. Medial and lateral ligaments were well balanced. Flexion and extension gap was well balanced. The knee was flexed up. Lamina representative personal service was placed both medially and laterally. Any remaining meniscus was carefully removed using electrocautery. Curved osteotome was used to remove any posterior osteophytes. Tibial tray and drop arleth were placed and once again confirmed a satisfactory tibial cut. A right size 5 narrow femoral trial was impacted on to the distal femur and had excellent stability. The box for the posterior stabilized implant was prepared using a reamer and box cut osteotome. Size 3 tibial tray trial with an 11-mm insert trial was placed. The knee was taken through a range of motion. The knee had full extension to 130 degrees of flexion with satisfactory patellofemoral tracking. The patella was everted. A 9 mm of patellar bone and cartilage was carefully removed using an oscillating saw. The patella was sized to a size 29. Three peg holes were drilled through the size 29 guide. The 29 trial patella was placed. The knee was taken through a range of motion and there was satisfactory patellofemoral tracking. All trials were carefully removed. The tibia was subluxed anteriorly and sized to a size 3. Proximal tibia was prepared using a size 3 keel punch. All bony cut surfaces were copiously irrigated with sterile saline and dried. Final implants were cemented into place starting with the tibia, followed by the femur and last the patella. An 11-mm insert trial was placed and the knee was taken to full extension. Tourniquet was turned down at 42 minutes. The knee was copiously irrigated with sterile saline. Electrocautery was used to obtain meticulous hemostasis. Once the cement had fully cured, the insert trial was removed. Any excess cement was removed from around the capsule and hardware. Final insert chosen was am 11-mm posterior stabilized articular insert size 3-4. This was locked into position on the tibial tray. Stability of the insert was checked and rechecked and noted to be stable. The extensor mechanism was closed using interrupted #1 Vicryl. The rest of the incision was closed in a layered fashion using 0 and 2-0 Vicryl. Skin was closed using running 3-0 nylon suture. Sterile Xeroform, 4x4's, and Webril were used to cover the incision. Daron wrap and cold pack were placed over this. The patient's anesthesia was reversed without difficulty. She was taken to the PACU in stable condition. Intended weightbearing will be weightbearing as tolerated. Intended DVT prophylaxis will be Coumadin with a Lovenox bridge. [id number]/[facility] #: [id number] JAN
[2018-04-25] MEDS ORDERED: Enoxaparin(*) 40 MG/0.4 ML SYR SUBCUT SCH (12:00)
[2018-04-25 13:40] VITALS: BP 112/58
[2018-04-26] MEDS ORDERED: Atorvastatin* 10 MG TAB PO SCH (09:00)
== END 2018-04-25 15:15 | disposition home health service (06) | DRG 302 ==
LOC: AA 08:37 → SSU 15:55
PROVIDERS: ADMIT Orthopaedic Surgery Adult Reconstructive Orthopaedic Surgery; ATTEND Orthopaedic Surgery Adult Reconstructive Orthopaedic Surgery
PROC: 0SRC069 Replacement of Right Knee Joint with Oxidized Zirconium on Polyethylene Synthetic Substitute, Cemented, Open Approach (ICD-10-PCS; principal; 2018-04-24 11:00)
DX: M17.11 Unilateral primary osteoarthritis, right knee (principal); I10 Essential (primary) hypertension; E78.00 Pure hypercholesterolemia, unspecified; K21.9 Gastro-esophageal reflux disease without esophagitis; Z85.72 Personal history of non-Hodgkin lymphomas; F32.9 Major depressive disorder, single episode, unspecified; G47.30 Sleep apnea, unspecified; J45.909 Unspecified asthma, uncomplicated; M25.461 Effusion, right knee; M25.761 Osteophyte, right knee; E66.9 Obesity, unspecified; H35.30 Unspecified macular degeneration; Z90.710 Acquired absence of both cervix and uterus; Z98.84 Bariatric surgery status; Z88.6 Allergy status to analgesic agent; Z83.3 Family history of diabetes mellitus; Z82.49 Family history of ischemic heart disease and other diseases of the circulatory system; Z72.89 Other problems related to lifestyle; Z91.030 Bee allergy status; Z68.37 Body mass index [BMI] 37.0-37.9, adult; Z81.8 Family history of other mental and behavioral disorders; Z80.3 Family history of malignant neoplasm of breast; Z80.7 Family history of other malignant neoplasms of lymphoid, hematopoietic and related tissues; Z82.0 Family history of epilepsy and other diseases of the nervous system
CPT/HCPCS: 36415; 80048; 85014; 85018; 85049; 85610; 88305; 88311; 90686; A9270-GY; C1776; J0360; J0690; J1100; J1650; J2250; J2270; J2405; J2704; J2795; J3010

== ENCOUNTER 2018-05-14 06:19 | Day surgery (SDC) | payer OTHER ==
[~2018-05-14 06:19] MED LIST changes: +Acetaminophen TAB* 325 MG PO PRN; -Dexamethasone IV* 4 MG/ML 1 ML (4 MG) IV SLOW PU ONE; -Famotidine IV* 10 MG/ML 2 ML (20 mg) IV ONE; -Gabapentin CAP(*) 300 MG PO ONE; -Levalbuterol 0.63MG/3ML NEB* UNIT OF USE INH PRN; -Tranexamic Acid 1,000 MG in NS 0.9% 50 ML* (outpatient use) IV SCH
[2018-05-14] MEDS ORDERED: Midazolam* 1 MG/ML 2 ML VIAL (2 MG) ONE ×2 (07:15→07:31)
[2018-05-14 08:13] VITALS: BP 133/91
[2018-05-14] MEDS ORDERED: Cyclopentolate 1% OPTH.SOL* 2 ML BTL ONE (10:25)
[2018-05-14] MEDS ORDERED: Ketorolac 0.5% OPHTH (NF) 0.5 % 5 ML BTL ONE (10:25)
[2018-05-14] MEDS ORDERED: acetaZOLAMIDE TAB* 250 MG ONE (10:25)
[2018-05-14] MEDS ORDERED: Neomycin/Polymy/Dex OPHTH.OIN* 3.5 GM ONE (10:25)
[2018-05-14] MEDS ORDERED: Tetracaine 0.5% OPTH.SOL 4 ML* 1 DROP BTL ONE (10:25)
[2018-05-14] MEDS ORDERED: Povidone Iodine 5% OPTH* 30 ML BTL ONE (10:25)
[2018-05-14] MEDS ORDERED: Lidocaine 1%* 5 ML VIAL ONE (10:25)
[2018-05-14] MEDS ORDERED: Tropicamide 1% OPTH.SOL* BTL ONE (10:25)
[2018-05-14] MEDS ORDERED: Phenylephrine 2.5% OPTH.SOL* 2 ML BTL ONE (10:25)
--- NOTE | 2018-05-15 09:19 | OP ---
DATE OF OPERATION: 05/14/18 - [facility] DATE OF : 57 SURGEON: Krishna Mays MD ANESTHESIA: Monitored anesthesia care. PRE-OP DIAGNOSIS: Cataract, right eye. POST-OP DIAGNOSIS: Cataract, right eye. OPERATIVE PROCEDURE: Extracapsular cataract extraction of the right eye with intraocular lens implant. IMPLANT: SN60WF 22.5 diopter lens to the right eye. COMPLICATIONS: None. DESCRIPTION OF PROCEDURE: The patient was given phenylephrine 2.5 % and cyclopentolate 1% eye drops to the operative eye in the preoperative area. The patient was taken to the operating room where a time-out was taken to identify the correct patient, site, and side of surgery. The patient's right eye was prepped and draped in the usual sterile fashion with 5% Betadine. A second time- out was taken to verify the correct patient, side, and site of surgery, as well as the correct lens implant. A lid speculum was placed to the right eye. A 1mm paracentesis blade was used to make a clear corneal incision. Preservative-free 1% lidocaine was injected into the anterior chamber. DisCoVisc was then injected into the anterior chamber. A 2.75 mm keratome blade was used to make a triplanar incision. A cystotome initiated a capsulorrhexis, which was completed with Utrata forceps in a continuous and curvilinear manner. Hydrodissection of the lens was performed with BSS on a cannula. The lens could be spun in a capsular bag. The phacoemulsification handpiece was used with a divide-and- conquer technique to remove the nucleus. The I/A handpiece then removed the residual cortical lens material. DisCoVisc was injected to inflate the capsular bag. The planned SN60WF 22.5 diopter lens was injected into the capsular bag. The residual DisCoVisc was removed from the eye with the I/A handpiece. The corneal incisions were hydrated and no leaks occurred at physiologic pressure around 20 mmHg per palpation. The lid speculum was removed and drapes were removed. Maxitrol ointment was placed to the surface of the operative eye. An adhesive patch and shield was then placed on the operative eye. The patient was taken to the postoperative area in stable condition. [id number]/[facility] #: [id number] [facility]
== END 2018-05-14 08:15 | disposition home or self-care (01) ==
LOC: OREAST 06:19
PROVIDERS: ATTEND Student in an Organized Health Care Education/Training Program
DX: Z01.818 Encounter for other preprocedural examination (principal); H25.13 Age-related nuclear cataract, bilateral; H35.373 Puckering of macula, bilateral; H35.3131 Nonexudative age-related macular degeneration, bilateral, early dry stage; H25.23 Age-related cataract, morgagnian type, bilateral; M17.11 Unilateral primary osteoarthritis, right knee; J45.998 Other asthma; I10 Essential (primary) hypertension; E78.00 Pure hypercholesterolemia, unspecified
CPT/HCPCS: A9270-GY; J2250; V2632

== ENCOUNTER 2018-05-19 08:36 | Day surgery (SDC) | payer OTHER ==
[2018-05-19] MEDS ORDERED: fentaNYL* 50 MCG/ML 2 ML VIAL (100 MCG VIAL) ONE (09:17)
[2018-05-19] MEDS ORDERED: Midazolam* 1 MG/ML 2 ML VIAL (2 MG) ONE (09:17)
[2018-05-19 10:31] VITALS: BP 153/94
[2018-05-19] MEDS ORDERED: Phenylephrine 2.5% OPTH.SOL* 2 ML BTL ONE (14:31)
[2018-05-19] MEDS ORDERED: Povidone Iodine 5% OPTH* 30 ML BTL ONE (14:31)
[2018-05-19] MEDS ORDERED: Tetracaine 0.5% OPTH.SOL 4 ML* 1 DROP BTL ONE (14:31)
[2018-05-19] MEDS ORDERED: Ketorolac 0.5% OPHTH (NF) 0.5 % 5 ML BTL ONE (14:31)
[2018-05-19] MEDS ORDERED: acetaZOLAMIDE TAB* 250 MG ONE (14:31)
[2018-05-19] MEDS ORDERED: Cyclopentolate 1% OPTH.SOL* 2 ML BTL ONE (14:31)
[2018-05-19] MEDS ORDERED: Tropicamide 1% OPTH.SOL* BTL ONE (14:31)
[2018-05-19] MEDS ORDERED: Neomycin/Polymy/Dex OPHTH.OIN* 3.5 GM ONE (14:31)
[2018-05-19] MEDS ORDERED: Lidocaine 1%* 5 ML VIAL ONE (14:31)
--- NOTE | 2018-05-19 23:41 | OP ---
DATE OF OPERATION: 05/19/18 - [facility] DATE OF : 57 SURGEON: Krishna Mays MD ANESTHESIA: Monitored anesthesia care. PREOPERATIVE DIAGNOSIS: Cataract, left eye. POSTOPERATIVE DIAGNOSIS: Cataract, left eye. OPERATIVE PROCEDURE: Extracapsular cataract extraction of the left eye with intraocular lens implant. IMPLANT: SN60WF 23.0 diopter lens to the left eye. COMPLICATIONS: None. DESCRIPTION OF PROCEDURE: The patient was given phenylephrine 2.5 % and cyclopentolate 1% eye drops to the operative eye in the preoperative area. The patient was taken to the operating room where a time-out was taken to identify the correct patient, site, and side of surgery. The patient's left eye was prepped and draped in the usual sterile fashion with 5% Betadine. A second time -out was taken to verify the correct patient, side, and site of surgery, as well as the correct lens implant. A lid speculum was placed to the left eye. A 1mm paracentesis blade was used to make a clear corneal incision. Preservative- free 1% lidocaine was injected into the anterior chamber. DisCoVisc was then injected into the anterior chamber. A 2.75 mm keratome blade was used to make a triplanar incision. A cystotome initiated a capsulorrhexis, which was completed with Utrata forceps in a continuous and curvilinear manner. Hydrodissection of the lens was performed with BSS on a cannula. The lens could be spun in a capsular bag. The phacoemulsification handpiece was used with a [id number]-cqnirmt technique to remove the nucleus. The I/A handpiece then removed the residual cortical lens material. DisCoVisc was injected to inflate the capsular bag. The planned SN60WF 23.0 diopter lens was injected into the capsular bag. The residual DisCoVisc was removed from the eye with the I/A handpiece. The corneal incisions were hydrated and no leaks occurred at physiologic pressure around 20 mmHg per palpation. The lid speculum was removed and drapes were removed. Maxitrol ointment was placed to the surface of the operative eye. An adhesive patch and shield was then placed on the operative eye. The patient was taken to the postoperative area in stable condition. [id number] #: [id number] [facility]
== END 2018-05-19 10:37 | disposition home or self-care (01) ==
LOC: OREAST 08:36
PROVIDERS: ATTEND Student in an Organized Health Care Education/Training Program
DX: H25.12 Age-related nuclear cataract, left eye (principal); H35.373 Puckering of macula, bilateral; H35.3131 Nonexudative age-related macular degeneration, bilateral, early dry stage; G47.33 Obstructive sleep apnea (adult) (pediatric); J45.909 Unspecified asthma, uncomplicated; K21.9 Gastro-esophageal reflux disease without esophagitis; M19.90 Unspecified osteoarthritis, unspecified site; Z79.01 Long term (current) use of anticoagulants; C85.90 Non-Hodgkin lymphoma, unspecified, unspecified site
CPT/HCPCS: A9270-GY; J2250; J3010; V2632